=== PATIENT | female | born 1945 | race Caucasian/White ===

== ENCOUNTER 2016-10-18 00:24 | Day surgery (SDC) | payer MEDICARE ==
[~2016-10-18] VITALS: Ht 160 cm; Wt 81.0 kg
[2016-10-18] VITALS (11 sets, daily range): BP systolic 130–194; BP diastolic 56–82; PULSE 56–75; RESP 14–17; O2SAT 100
[~2016-10-18 00:24] MED LIST: AMLO5TAB2 PO; ASPI-973 PO; ATOR40TA69 PO; LEVO50CA2 PO; LORA0.5T PO; LOSA100T29 PO; MULT-1080 PO; RANI300C PO
[2016-10-18] MEDS ORDERED: 0.9% Sodium Chloride 1,000 ML IV ONE (06:24)
[2016-10-18 06:33] LABS: BASOPHILS % (AUTO) 0.4 % (0-3); EOSINOPHILS % (AUTO) 1.1 % (0-5); MONOCYTES % (AUTO) 11.4 % (4-12); Mean Corpuscular Hemoglobin 29.2 pg (27.0-35.0); NEUTROPHILS % (AUTO) 55.1 % (40-74); Platelet Count 312 bil/L (150-400)
[2016-10-18 06:52] LABS: INR 0.94 ratio
[2016-10-18] MEDS ORDERED: Heparin 1,000 Units/500 mL NS Premix IV ONE (07:35)
[2016-10-18] MEDS ORDERED: Heparin 10,000 Unit/1,000 mL NS Premix IV ONE (07:35)
[2016-10-18] MEDS ORDERED: fentaNYL-PF 50 mCg/mL 2 mL Inj ONE (07:54)
[2016-10-18] MEDS ORDERED: hydrALAZINE 20 mg/mL Inj ONE (08:04)
[2016-10-18] MEDS ORDERED: Sodium Chloride LOK Flush 10 mL Syringe IVFLUSH SCH (08:30)
[2016-10-18] MEDS ORDERED: 0.9% Sodium Chloride 250 ML IV PRN (08:54)
[2016-10-18] MEDS ORDERED: 0.9% Sodium Chloride 1,000 ML IV PRN (08:54)
[2016-10-18] MEDS ORDERED: Ondansetron 2 mg/mL 2 mL Inj IVPUSH PRN (08:55)
[2016-10-18] MEDS ORDERED: HYDROcodone-APAP 5-325 mg Tablet PO PRN (08:55)
[2016-10-18] MEDS ORDERED: Atropine 1 mg/10 mL (Code) Syringe IVPUSH PRN (08:55)
[2016-10-18] MEDS ORDERED: Alum-Mag Hydrox-Simeth 30 mL Suspension ONE (10:58)
--- NOTE | 2016-10-18 11:13 | NUR ---
Dr Alvarez updated about pt having on going nausea without vomit, malox ordered and given, IV will continue. Pt up at 1030 ambulation and void in restroom. Groin remains intact without issues. discharged verbal and written instructions given to patient and family, stated understanding. Pt continues to sit at beside taking PO fluids and eating crackers
--- NOTE | 2016-10-18 12:22 | NUR ---
patient's nausea resolved, ready to leave. IV dc'd patient discharged ambulatory with and daughter in attendance.
[2016-10-18] MEDS ORDERED: Alum-Mag Hydrox-Simeth 30 mL Suspension PO ONE (13:20)
--- NOTE | 2016-10-18 14:17 | CS94 ---
[place] [address] DIAGNOSTIC CARDIAC CATHETERIZATION PATIENT: ANALY GOMES : 1945 MR#: [id number] ADMIT: 10/18/2016 JOB ID: [id number] SERVICE DATE: 10/18/2016 INDICATION: Abnormal stress test. PROCEDURE: 1. Retrograde left heart catheterization. 2. Selective left and right coronary angiography. 3. Left ventricular cineangiography. CONSENT: The patient was explained the risks, benefits, and alternatives of the procedure. Informed signed consent was obtained and placed in the chart. DESCRIPTION OF PROCEDURE: The patient was brought to the cath laboratory and placed on the cath table. Both groins were prepped and draped in the usual sterile manner. Lidocaine 1% was infiltrated in the right groin area to achieve topical anesthesia. Using a modified Seldinger technique, a 6-[place] arterial sheath was placed in the right femoral artery without any difficulty. An FL4 catheter was used to engage the left main coronary artery. Multiple views of the left coronary artery were obtained in multiple projections. Subsequently, FR4 catheter was used to engage the right coronary artery. Multiple views of the right coronary artery were obtained in multiple projections. A pigtail catheter was advanced over the guidewire and placed in the left ventricle. Left ventricular hemodynamics were obtained. Subsequently, left ventricular cineangiography was performed in the right anterior oblique view. After the completion of the examination, right groin angiography was performed. A closure device was deployed successfully. The patient was taken out of the cath laboratory in stable condition. No complications. Fluoro time was 1.5 minutes and total contrast used 70 cc. FINDINGS: HEMODYNAMICS: The left ventricular end-diastolic pressure was 19-20 mmHg. There was no left ventricular to aortic gradient. During the procedure, the patient had systemic hypertension for which she was given 10 mg of hydralazine. CORONARY ANGIOGRAPHY: The left main coronary artery is very short and bifurcates into a left anterior descending artery and left circumflex coronary artery. The left anterior descending artery is mildly diffusely calcified in the proximal, extending into the mid segments. Luminal irregularities are noted in the proximal and mid segments. No significant stenosis noted. The diagonal branch arising from the left anterior descending artery, has no significant stenosis. The LAD wraps around the LV apex and then bifurcates at the very distal end. The left circumflex coronary artery has luminal irregularities in its proximal and mid segments. It gives off two obtuse marginal branches. The first obtuse margin branch is a small branch vessel. The second obtuse marginal branch is a moderate-sized vessel. The right coronary artery again demonstrates diffuse calcification in the proximal and mid segments. It bifurcates into a PDA and posterolateral branch. Again no significant stenosis noted. The left ventricular cineangiography. The LV function is estimated at 55%-60%. No significant MR or aortic regurgitation noted. IMPRESSION: 1. Mild three-vessel coronary artery disease with mild diffuse calcification noted in the left anterior descending and right coronary artery. 2. Normal left ventricular systolic function. 3. Mildly elevated left ventricular end-diastolic pressure of 19 mmHg.
== END 2016-10-18 23:59 | disposition home or self-care (01) ==
LOC: SOUO 00:24
PROVIDERS: ATTEND Internal Medicine Cardiovascular Disease
DX: I25.10 Atherosclerotic heart disease of native coronary artery without angina pectoris (principal); I10 Essential (primary) hypertension; F17.200 Nicotine dependence, unspecified, uncomplicated; Z79.82 Long term (current) use of aspirin; E03.9 Hypothyroidism, unspecified; K21.9 Gastro-esophageal reflux disease without esophagitis; E78.2 Mixed hyperlipidemia
CPT/HCPCS: 36415; 80048; 85025; 85610; 93458; 99152; 99153; C1760; C1769; J0360; J1644; J2250; J2405; J3010; J7030; Q9967